=== PATIENT | male | born 1970 | race Caucasian/White ===

== ENCOUNTER 2017-02-26 21:18 | Emergency (ER) | payer MEDICAID | END 2017-02-26 22:37 | disposition home or self-care (01) | LOC: D.ER 21:18 | DX: R51 Headache (principal); Y04.2XXA Assault by strike against or bumped into by another person, initial encounter; Y93.89 Activity, other specified; Y92.89 Other specified places as the place of occurrence of the external cause; F17.200 Nicotine dependence, unspecified, uncomplicated; S09.90XA Unspecified injury of head, initial encounter ==

== ENCOUNTER 2018-05-22 14:22 | Inpatient (IN) | payer MEDICAID ==
[~2018-05-22] VITALS: Ht 177.8 cm; Wt 104.8 kg
--- NOTE | ~2018-05-22 | MORECARE ---
CASE MANAGEMENT DISCHARGE SUMMARY PATIENT: BALDEMAR LOPEZ UNIT: [id number] ADM DATE: 05/22/18 AGE: 47 : 70 SEX: M ROOM/BED: D.2237 AUTHOR: BACILIO MARCELO PHYSICIAN: REFERRING PHYSICIAN: DIAN BAUTISTA MD DATE OF SERVICE: 05/23/18 Discharge Plan Patient Name: BALDEMAR LOPEZ Facility: [facility]:[place] : 1970 Planned Disposition: Home Anticipated Discharge Date: Discharge Date: Expected LOS: Initial Reviewer: [email or web address] Initial Review Date: 05/23/2018 Generated: 05/23/18 2:59 pm Patient Name: BALDEMAR LOPEZ Page 41515 at 1359 All edits/amendments must be made on the electronic document DICTATION DATE: 05/23/18 1358 CLAIM PROCESSING SPECIALIST: HUSAM 05/23/18 1358 RPT#: [id number] DC DATE: STATUS: ADM IN [facility] [address] [place] [address] END OF REPORT
--- NOTE | ~2018-05-22 | MORECARE ---
CASE MANAGEMENT DISCHARGE SUMMARY PATIENT: BALDEMAR LOPEZ UNIT: [id number] ADM DATE: 05/22/18 AGE: 47 : 70 SEX: M ROOM/BED: D.2237 AUTHOR: DAVIAN,DOC PHYSICIAN: REFERRING PHYSICIAN: DIAN BAUTISTA MD DATE OF SERVICE: 05/23/18 Discharge Plan Patient Name: BALDEMAR LOPEZ Facility: [facility]:[place] : 1970 Planned Disposition: Home Anticipated Discharge Date: Discharge Date: Expected LOS: Initial Reviewer: [email or web address] Initial Review Date: 05/23/2018 Generated: 05/23/18 3:34 pm Comments DCP- Discharge Planning Updated by [email or web address]: Ara Kennedy on 05/23/18 1:[address] Patient Name: BALDEMAR LOPEZ Admission Status: ER Accout number: [id number] Admission Date: 05-22-2018 : 1970 Admission Diagnosis: Attending: LILY, Current LOS: 1 Anticipated DC Date: Planned Disposition: Home Primary Insurance: MEDICAID [place] Discharge Planning Comments: Spoke with patient to discuss discharge planning. States he lives in a camper [address]. States he also has an apartment on [address]. States he would like information on HUD housing because he does not feel his home environment is safe. States he will need transportation for home. He refuses to answer some questions, will not give address to [facility] site. States "I always have someone break in when I'm in the hospital and don't want you to know the address." I informed him that I will need his address on discharge if he needs SCAT transportation. SCAT number provided to him. I called Hanh Ron with [employer] to see if she can assist with housing. She states she will call him. I informed him to answer his phone when Hanh calls so that they can assist with housing. CM will continue to follow and assist with discharge planning/needs. Loom Overhauler: Ara Kennedy DCPIA - Discharge Planning Initial Assessment Updated by [email or web address]: Ara Kennedy on 05/23/18 2:23 pm * Is the patient Alert and Oriented? Yes * How many steps to enter\\exit or inside your home? 0/0 * PCP No PCP * Pharmacy [facility] on [address] * Preadmission Environment Home Alone * ADLs Independent * Equipment None * List name and contact numbers for known caregivers / representatives who currently or will assist patient after discharge: Refuses quiestion * Verbal permission to speak to the caregivers and representatives has been obtained from the patient. N/A * Community resources currently utilized None * Additional services required to return to the preadmission environment? No * Can the patient safely return to the preadmission environment? Yes * Has this patient been hospitalized within the prior 30 days at any hospital? No Last DP export: 05/23/18 1:28 Patient Name: BALDEMAR LOPEZ Page 09360 at 1434 All edits/amendments must be made on the electronic document DICTATION DATE: 05/23/181433 CLINICAL NURSING MANAGER: HUSAM 05/23/181433 RPT#: [id number] DC DATE: STATUS: ADM IN [facility] [address] [place] [address] END OF REPORT
--- NOTE | ~2018-05-22 | MORECARE ---
CASE MANAGEMENT DISCHARGE SUMMARY PATIENT: BALDEMAR LOPEZ UNIT: [id number] ADM DATE: 05/22/18 AGE: 47 : 70 SEX: M ROOM/BED: D.2237 AUTHOR: DAVIAN,DOC PHYSICIAN: REFERRING PHYSICIAN: DIAN BAUTISTA MD DATE OF SERVICE: 05/30/18 Discharge Plan Patient Name: BALDEMAR LOPEZ Facility: [facility]:[place] : 1970 Planned Disposition: Home Anticipated Discharge Date: 05/28/18 Discharge Date: 05/28/2018 Expected LOS: 6 Initial Reviewer: [email or web address] Initial Review Date: 05/23/2018 Generated: 05/30/18 5:32 pm Comments DCP- Discharge Planning Updated by [email or web address]: Pebbles Ozuna on 05/28/18 11:[address] Patient Name: BALDEMAR LOPEZ Encounter No: [id number] : 1970 Primary Insurance: MEDICAID [place] Anticipated DC Date: Planned Disposition: Home External Planned Provider: : DCP follow-up note: Patient in agreement with discharge plan. BUS TICKET AND TRANSIT MAP PUT WITH PATIENTS DC INSTRUCTIONS. CM MET WITH PATIENT AND TOLD HIM I WE WERE GIVING HIM A BUS TICKET AT DISCHARGE. No changes to plan. Case management will follow and assist as needed. Pebbles Ozuna DCP- Discharge Planning Updated by [email or web address]: Ara Kennedy on 05/27/18 1:[address] I spoke with patient today concerning discharge plan. I informed him I could call the [facility] bus for transportation home if he will tell me an address of where he is going. He states he does not know the address on [address] where his camper is. He states he would like to go to the apartments on [address] under HUD housing. I informed him he would need to go to [facility] and apply for HUD housing. He asks if I can do that for him. I explained I was not able to do that, he would need to apply. [facility] [facility] personal care has left their packet and card with him and I told him to follow up with Jm sa[employer] for assistance. CM will continue to follow and assist with discharge planning/needs. DCP- Discharge Planning Updated by [email or web address]: Ara Kennedy on 05/24/18 11:[address] Informed patient that Trina Bobby will be here around 2:15 to help him fill out an application for personal care. Patient is thankful and agrees with plan. CM will continue to follow and assist with discharge planning/needs. DCP- Discharge Planning Updated by [email or web address]: Ara Kennedy on 05/23/18 1:[address] Patient Name: BALDEMAR LOPEZ Admission Status: ER Accout number: [id number] Admission Date: 05-22-2018 : 1970 Admission Diagnosis: Attending: LILY, Current LOS: 1 Anticipated DC Date: Planned Disposition: Home Primary Insurance: MEDICAID [place] Discharge Planning Comments: Spoke with patient to discuss discharge planning. States he lives in a camper on [address]. States he also has an apartment on [address]. States he would like information on HUD housing because he does not feel his home environment is safe. States he will need transportation for home. He refuses to answer some questions, will not give address to [facility] site. States "I always have someone break in when I'm in the hospital and don't want you to know the address." I informed him that I will need his address on discharge if he needs SCAT transportation. SCAT number provided to him. I called Hanh Ron with [employer] to see if she can assist with housing. She states she will call him. I informed him to answer his phone when Hanh calls so that they can assist with housing. CM will continue to follow and assist with discharge planning/needs. Assembler Production Line: Ara Kennedy DCPIA - Discharge Planning Initial Assessment Updated by [email or web address]: Ara Kennedy on 05/23/18 2:23 pm * Is the patient Alert and Oriented? Yes * How many steps to enter\\exit or inside your home? 0/0 * PCP No PCP * Pharmacy [facility] on [address] * Preadmission Environment Home Alone * ADLs Independent * Equipment None * List name and contact numbers for known caregivers / representatives who currently or will assist patient after discharge: Refuses quiestion * Verbal permission to speak to the caregivers and representatives has been obtained from the patient. N/A * Community resources currently utilized None * Additional services required to return to the preadmission environment? No * Can the patient safely return to the preadmission environment? Yes * Has this patient been hospitalized within the prior 30 days at any hospital? No Last DP export: 05/28/18 11:55 Patient Name: BALDEMAR LOPEZ Page 44139 at 1632 All edits/amendments must be made on the electronic document DICTATION DATE: 05/30/181631 LANGUAGE INSTRUCTOR: HUSAM 05/30/18 1632 RPT#: [id number] DC DATE:05/28/18 STATUS: DIS IN [facility] [address] [place] [address] END OF REPORT
--- NOTE | ~2018-05-22 | MORECARE ---
CASE MANAGEMENT DISCHARGE SUMMARY PATIENT: BALDEMAR LOPEZ UNIT: [id number] ADM DATE: 05/22/18 AGE: 47 : 70 SEX: M ROOM/BED: D.2237 AUTHOR: BACILIO MARCELO PHYSICIAN: REFERRING PHYSICIAN: DIAN BAUTISTA MD DATE OF SERVICE: 05/23/18 Discharge Plan Patient Name: BALDEMAR LOPEZ [facility] : 1970 Planned Disposition: Home Anticipated Discharge Date: Discharge Date: Expected LOS: Initial Reviewer: [email or web address] Initial Review Date: 05/23/2018 Generated: 05/23/18 3:28 pm DCPIA - Discharge Planning Initial Assessment Updated by [email or web address]: Ara Kennedy on 05/23/18 2:23 pm * Is the patient Alert and Oriented? Yes * How many steps to enter\exit or inside your home? 0/0 * PCP No PCP * Pharmacy [facility] * Preadmission Environment Home Alone * ADLs Independent * Equipment None * List name and contact numbers for known caregivers / representatives who currently or will assist patient after discharge: Refuses quiestion * Verbal permission to speak to the caregivers and representatives has been obtained from the patient. N/A * Community resources currently utilized None * Additional services required to return to the preadmission environment? No * Can the patient safely return to the preadmission environment? Yes * Has this patient been hospitalized within the prior 30 days at any hospital? No Last DP export: 05/23/18 12:59 Patient Name: BALDEMAR LOPEZ Page 49832 at 1428 All edits/amendments must be made on the electronic document DICTATION DATE: 05/23/181426 HEEL PAINTER: HUSAM 05/23/181426 RPT#: [id number] MT DATE: STATUS: ADM IN [facility] [address] [place] [address] END OF REPORT
--- NOTE | ~2018-05-22 | MORECARE ---
CASE MANAGEMENT DISCHARGE SUMMARY PATIENT: BALDEMAR LOPEZ UNIT: [id number] ADM DATE: 05/22/18 AGE: 47 : 70 SEX: M ROOM/BED: D.2237 AUTHOR: DAVIAN,DOC PHYSICIAN: REFERRING PHYSICIAN: DIAN BAUTISTA MD DATE OF SERVICE: 05/27/18 Discharge Plan Patient Name: BALDEMAR LOPEZ Facility: [facility]:[place] : 1970 Planned Disposition: Home Anticipated Discharge Date: Discharge Date: Expected LOS: Initial Reviewer: [email or web address] Initial Review Date: 05/23/2018 Generated: 05/27/18 3:40 pm Comments DCP- Discharge Planning Updated by [email or web address]: Ara Kennedy on 05/27/18 1:[address] I spoke with patient today concerning discharge plan. I informed him I could call the [email or web address] bus for transportation home if he will tell me an address of where he is going. He states he does not know the address on [address] where his camper is. He states he would like to go to the apartments on [address] under HUD housing. I informed him he would need to go to [facility] and apply for HUD housing. He asks if I can do that for him. I explained I was not able to do that, he would need to apply. [employer] personal care has left their packet and card with him and I told him to follow up with Jm saeed for assistance. CM will continue to follow and assist with discharge planning/needs. DCP- Discharge Planning Updated by [email or web address]: Ara Kennedy on 05/24/18 11:[address] Informed patient that Trina Bobby will be here around 2:15 to help him fill out an application for personal care. Patient is thankful and agrees with plan. CM will continue to follow and assist with discharge planning/needs. DCP- Discharge Planning Updated by [email or web address]: Ara Kennedy on 05/23/18 1:[address] Patient Name: BALDEMAR LOPEZ Admission Status: ER Accout number: [id number] Admission Date: 05-22-2018 : 1970 Admission Diagnosis: Attending: LILY, Current LOS: 1 Anticipated DC Date: Planned Disposition: Home Primary Insurance: MEDICAID [place] Discharge Planning Comments: Spoke with patient to discuss discharge planning. States he lives in a camper on [address]. States he also has an apartment on [address]. States he would like information on HUD housing because he does not feel his home environment is safe. States he will need transportation for home. He refuses to answer some questions, will not give address to [facility]. States "I always have someone break in when I'm in the hospital and don't want you to know the address." I informed him that I will need his address on discharge if he needs [employer]AT transportation. SCAT number provided to him. I called Hanh Ron with [employer] to see if she can assist with housing. She states she will call him. I informed him to answer his phone when Hanh calls so that they can assist with housing. CM will continue to follow and assist with discharge planning/needs. Plisse Machine Operator Helper: Ara Kennedy DCPIA - Discharge Planning Initial Assessment Updated by [email or web address]: Ara Kennedy on 05/23/18 2:23 pm * Is the patient Alert and Oriented? Yes * How many steps to enter\\exit or inside your home? 0/0 * PCP No PCP * Pharmacy [facility] on [address] * Preadmission Environment Home Alone * ADLs Independent * Equipment None * List name and contact numbers for known caregivers / representatives who currently or will assist patient after discharge: Refuses quiestion * Verbal permission to speak to the caregivers and representatives has been obtained from the patient. N/A * Community resources currently utilized None * Additional services required to return to the preadmission environment? No * Can the patient safely return to the preadmission environment? Yes * Has this patient been hospitalized within the prior 30 days at any hospital? No Last DP export: 05/24/18 11:23 Patient Name: BALDEMAR LOPEZ Page 32439 at 1440 All edits/amendments must be made on the electronic document DICTATION DATE: 05/27/181439 CORK SLABS SAWYER: HUSAM 05/27/181439 RPT#: [id number] SD DATE: STATUS: ADM IN [facility] [address] [place] [address] END OF REPORT
--- NOTE | ~2018-05-22 | MORECARE ---
CASE MANAGEMENT DISCHARGE SUMMARY PATIENT: BALDEMAR LOPEZ UNIT: [id number] ADM DATE: 05/22/18 AGE: 47 : 70 SEX: M ROOM/BED: D.2237 AUTHOR: DAVIAN,DOC PHYSICIAN: REFERRING PHYSICIAN: DIAN BAUTISTA MD DATE OF SERVICE: 05/28/18 Discharge Plan Patient Name: BALDEMAR LOPEZ Facility: [facility]:[place] : 1970 Planned Disposition: Home Anticipated Discharge Date: 05/28/18 Discharge Date: Expected LOS: 6 Initial Reviewer: [email or web address] Initial Review Date: 05/23/2018 Generated: 05/28/18 1:55 pm Comments DCP- Discharge Planning Updated by [email or web address]: Pebbles Ozuna on 05/28/18 11:[address] Patient Name: BALDEMAR LOPEZ Encounter No: [id number] : 1970 Primary Insurance: MEDICAID [place] Anticipated DC Date: Planned Disposition: Home External Planned Provider: : DCP follow-up note: Patient in agreement with discharge plan. BUS TICKET AND TRANSIT MAP PUT WITH PATIENTS DC INSTRUCTIONS. CM MET WITH PATIENT AND TOLD HIM I WE WERE GIVING HIM A BUS TICKET AT DISCHARGE. No changes to plan. Case management will follow and assist as needed. Pebbles Ozuna DCP- Discharge Planning Updated by [email or web address]: Ara Kennedy on 05/27/18 1:[address] I spoke with patient today concerning discharge plan. I informed him I could call the [email or web address] bus for transportation home if he will tell me an address of where he is going. He states he does not know the address on [address] where his camper is. He states he would like to go to the apartments on [address] under HUD housing. I informed him he would need to go to [facility] and apply for HUD housing. He asks if I can do that for him. I explained I was not able to do that, he would need to apply. [employer] [facility] personal care has left their packet and card with him and I told him to follow up with Jm saeed for assistance. CM will continue to follow and assist with discharge planning/needs. DCP- Discharge Planning Updated by [email or web address]: Ara Kennedy on 05/24/18 11:[address] Informed patient that Trina Bobby will be here around 2:15 to help him fill out an application for personal care. Patient is thankful and agrees with plan. CM will continue to follow and assist with discharge planning/needs. DCP- Discharge Planning Updated by [id number]: Ara Kennedy on 05/23/18 1:[address] Patient Name: BALDEMAR LOPEZ Admission Status: ER Accout number: [id number] Admission Date: 05-22-2018 : 1970 Admission Diagnosis: Attending: LILY, Current LOS: 1 Anticipated DC Date: Planned Disposition: Home Primary Insurance: MEDICAID [place] Discharge Planning Comments: Spoke with patient to discuss discharge planning. States he lives in a camper on [address]. States he also has an apartment on [address]. States he would like information on HUD housing because he does not feel his home environment is safe. States he will need transportation for home. He refuses to answer some questions, will not give address to [facility] site. States "I always have someone break in when I'm in the hospital and don't want you to know the address." I informed him that I will need his address on discharge if he needs [employer] transportation. SCAT number provided to him. I called Hanh Ron with [employer] to see if she can assist with housing. She states she will call him. I informed him to answer his phone when Hanh calls so that they can assist with housing. CM will continue to follow and assist with discharge planning/needs. Fire Alarm Inspector: Ara Marcia DCPIA - Discharge Planning Initial Assessment Updated by [email or web address]: Ara Kennedy on 05/23/18 2:23 pm * Is the patient Alert and Oriented? Yes * How many steps to enter\\exit or inside your home? 0/0 * PCP No PCP * Pharmacy [facility] on [address] * Preadmission Environment Home Alone * ADLs Independent * Equipment None * List name and contact numbers for known caregivers / representatives who currently or will assist patient after discharge: Refuses quiestion * Verbal permission to speak to the caregivers and representatives has been obtained from the patient. N/A * Community resources currently utilized None * Additional services required to return to the preadmission environment? No * Can the patient safely return to the preadmission environment? Yes * Has this patient been hospitalized within the prior 30 days at any hospital? No Last DP export: 05/27/18 1:40 Patient Name: BALDEMAR LOPEZ Page 64791 at 1255 All edits/amendments must be made on the electronic document DICTATION DATE: 05/28/181254 LOGISTICS ENGINEERING MANAGER: HUSAM 05/28/181254 RPT#: [id number] DC DATE: STATUS: ADM IN [facility] [address] [place] [address] END OF REPORT
--- NOTE | ~2018-05-22 | EC ---
PATIENT:BALDEMAR LOPEZ DATE OF SERVICE: 05/22/18 SEX: M MEDICAL RECORD: [id number] DATE OF : [birth year] LOCATION:[facility] AGE OF PATIENT: 47 ADMISSION DATE: 05/22/18 REFERRING PHYSICIAN: INTERPRETING PHYSICIAN: HENRIETTA JAUREGUI MD ECHOCARDIOGRAM REPORT ECHO CHARGES 4 ECHO COMPLETE Date: 05/23/18 CLINICAL DIAGNOSIS: CHF ECHOCARDIOGRAPHIC MEASUREMENTS (adult normal given) AC root (d.<3.7cm) 3.8 cm LV Septum d (<1.2 cm> 1.1 cm Valve Excursion 1.7 cm LV Septum (systole) 1.5 cm Left Atria (s.<4.0cm> 4.8 cm LVPW d(<1.2cm) 1.3 cm RV (d.<2.3cm) 3.5 cm LVPW (sytole) 1.4 cm LV diastole(<5.6CM) 6.8 cm MV E-F(>70mm/sec) cm LV systole 5.8 cm LVOT Diameter 2.2 cm MV exc.(>10mm) cm Est.ejection fraction (50-75%) % DOPPLER: LVIT cm/sec A cm/sec E 109 cm/sec LA cm/sec RVSP 47.1 mmHg LVOT 42.0 cm/sec AOP1/2T m/s Asc. Ao 71.0 cm/sec RVOT 47.0 cm/sec RA cm/sec PA 59.0 cm/sec AV Gradient Peak 2.0 mmHg AV Mean 1.0 mmHg AV Area 2.3 cm MV Gradient Peak 4.5 mmHg MV Mean 1.6 mmHg MV Area cm COMMENTS: Credit Office Manager: Jamey RAMOSOE Manager Of Radiology: 1 Dr. Jauregui TAPE# PACS Pericardial Effusion N DATE OF SERVICE: 05/23/2018 PROCEDURE: Echocardiogram. FINDINGS: 1. Left ventricular chamber size is moderately dilated. Left ventricular systolic function is markedly reduced, overall ejection fraction 10% to 15%. 2. Left atrium is enlarged at 4.8 cm. Right atrium and right ventricle chamber sizes are as well severely dilated. 3. Valvular structures have normal structure and motion. ECHOCARDIOGRAM REPORT [id number] BALDEMAR LOPEZ 4. Doppler interrogation reveals moderate to severe mitral regurgitation, moderate to severe tricuspid regurgitation, no other valvular insufficiency or stenosis. Pulmonary systolic pressure is estimated 47 mmHg. 5. No evidence of pericardial effusion or left ventricular thrombus. TRANSINT:[id number] Voice Confirmation ID: [id number] DOCUMENT ID: [id number] HENRIETTA JAUREGUI MD at 1914 CC: [id number] DICTATION DATE: 05/23/18 1220 WATERWORKS EMPLOYEE: 05/23/18 1303 ADM IN [facility] [address] [place] [id number]
--- NOTE | ~2018-05-22 | MORECARE ---
CASE MANAGEMENT DISCHARGE SUMMARY PATIENT: BALDEMAR LOPEZ UNIT: [id number] ADM DATE: 05/22/18 AGE: 47 : 70 SEX: M ROOM/BED: D.2237 AUTHOR: DAVIAN,DOC PHYSICIAN: REFERRING PHYSICIAN: DIAN BAUTISTA MD DATE OF SERVICE: 05/24/18 Discharge Plan Patient Name: BALDEMAR LOPEZ Facility: [facility] : 1970 Planned Disposition: Home Anticipated Discharge Date: Discharge Date: Expected LOS: Initial Reviewer: [email or web address] Initial Review Date: 05/23/2018 Generated: 05/24/18 1:23 pm Comments DCP- Discharge Planning Updated by [email or web address]: Ara Marcia on 05/24/18 11:[address] Informed patient that Trina Cardosoar will be here around 2:15 to help him fill out an application for personal care. Patient is thankful and agrees with plan. CM will continue to follow and assist with discharge planning/needs. DCP- Discharge Planning Updated by [email or web address]: Ara Kennedy on 05/23/18 1:[address] Patient Name: BALDEMAR LOPEZ Admission Status: ER Accout number: [id number] Admission Date: 05-22-2018 : 1970 Admission Diagnosis: Attending: LILY, Current LOS: 1 Anticipated DC Date: Planned Disposition: Home Primary Insurance: [place]ID [place] Discharge Planning Comments: Spoke with patient to discuss discharge planning. States he lives in a [facility] on [address]. States he also has an apartment on [address]. States he would like information on [employer] housing because he does not feel his home environment is safe. States he will need transportation for home. He refuses to answer some questions, will not give address to [facility]. States "I always have someone break in when I'm in the hospital and don't want you to know the address." I informed him that I will need his address on discharge if he needs [employer] transportation. SCAT number provided to him. I called Hanh oRn with [employer] to see if she can assist with housing. She states she will call him. I informed him to answer his phone when Hanh calls so that they can assist with housing. CM will continue to follow and assist with discharge planning/needs. [employer] Teacher: Ara Kennedy DCPIA - Discharge Planning Initial Assessment Updated by [email or web address]: Ara Kennedy on 05/23/18 2:23 pm * Is the patient Alert and Oriented? Yes * How many steps to enter\\exit or inside your home? 0/0 * PCP No PCP * Pharmacy [facility] on [address] * Preadmission Environment Home Alone * ADLs Independent * Equipment None * List name and contact numbers for known caregivers / representatives who currently or will assist patient after discharge: Refuses quiestion * Verbal permission to speak to the caregivers and representatives has been obtained from the patient. N/A * Community resources currently utilized None * Additional services required to return to the preadmission environment? No * Can the patient safely return to the preadmission environment? Yes * Has this patient been hospitalized within the prior 30 days at any hospital? No Last DP export: 05/23/18 1:34 Patient Name: BALDEMAR LOPEZ Page [id number] at 1223 All edits/amendments must be made on the electronic document DICTATION DATE: 05/24/18 122 PRODUCT MARKETING MANAGER: HUSAM 05/24/18 1223 RPT#: [id number] GA DATE: STATUS: ADM IN [facility] [address] [place] [address] END OF REPORT
[2018-05-22] MEDS ORDERED: BUMETANIDE0.5 MG PO (14:36)
[2018-05-22] MEDS ORDERED: COREG 3.1253.125 MG PO (14:37)
[2018-05-22 15:37] LABS: BASOPHILS 0.3 % (0-2); EOSINOPHILS 2.6 % (0-7); HEMATOCRIT 39.7 % (42.0-54.0); HEMOGLOBIN 13.1 g/dL (13.5-17.5); IMMATURE GRANULOCYTES 0.3 % (0-5); LYMPHOCYTES 22.4 % (15-50); MCH 30.5 pg (26.0-34.0); MCV 92.3 fL (80.0-100.0); MEAN PLATELET VOLUME 11.9 fL (7.4-10.4); MONOCYTES 8.9 % (2-11); NEUTROPHILS 65.5 % (40-80); PLATELET COUNT 187 10x3/uL (130-400); RDW 15.6 % (11.5-14.5); WBC 7.8 10x3/uL (4.8-10.8)
[2018-05-22 16:10] LABS: ALBUMIN 3.1 g/dL (3.4-5.0); ALKALINE PHOSPHATASE 521 U/L (46-116); ALT (SGPT) 61 U/L (10-68); BILIRUBIN - TOTAL 1.45 mg/dL (0.2-1.3); CALC OSMOLALITY 287 mosm/kg (275-300); CALCIUM 8.7 mg/dL (8.5-10.1); CARBON DIOXIDE 26.2 mmol/L (21.0-32.0); CHLORIDE - SERUM 104 mmol/L (98-107); CREATININE - SERUM 1.5 mg/dL (0.6-1.3); POTASSIUM - SERUM 4.1 mmol/L (3.5-5.1); PROTEIN - SERUM 6.7 g/dL (6.4-8.2); SODIUM 142 mmol/L (136-145); UREA NITROGEN 21 mg/dL (7-18); eGFR NON AFRICAN AMERICAN 53 mL/min (90-120)
[2018-05-22 16:18] LABS: GLUCOSE 140 mg/dL (74-106)
[2018-05-22 16:28] LABS: CKMB 0.8 U/L (0.0-3.6); CREATINE KINASE 86 UL (21-232); PRO BNP 14642 pg/mL (0-125); TROPONIN-I 0.029 ng/mL (0.000-0.060)
[2018-05-22 16:40] LABS: MAGNESIUM - SERUM 1.6 mg/dL (1.8-2.4); THYROID STIMULATING HORMONE 5.55 uIU/mL (0.36-3.74)
[2018-05-22 16:56] LABS: APPEARANCE CLEAR (CLEAR); BILIRUBIN NEGATIVE (NEGATIVE); COLOR YELLOW (YELLOW); GLUCOSE NEGATIVE (NEGATIVE); KETONE NEGATIVE (NEGATIVE); NITRITE NEGATIVE (NEGATIVE); PROTEIN 1+ mg/dL (NEGATIVE); UROBILINOGEN NORMAL (NORMAL)
[2018-05-22 17:05] LABS: UDS - AMPHET NEGATIVE QUAL (NEGATIVE); UDS - BARB NEGATIVE QUAL (NEGATIVE); UDS - BENZO NEGATIVE QUAL (NEGATIVE); UDS - COCAINE NEGATIVE QUAL (NEGATIVE); UDS - OPIATE NEGATIVE QUAL (NEGATIVE); UDS - PCP NEGATIVE QUAL (NEGATIVE); UDS - THC NEGATIVE QUAL (NEGATIVE)
[2018-05-22 17:36] VITALS: BP 114/86
[2018-05-22] MEDS ORDERED: VENTOLIN HFA18 GM INH (23:00)
[2018-05-23] VITALS (7 sets, daily range): BP systolic 104–121; BP diastolic 64–89; BMI 25.7
[2018-05-23 07:48] LABS: BASOPHILS 0.1 % (0-2); EOSINOPHILS 1.5 % (0-7); HEMATOCRIT 41.1 % (42.0-54.0); HEMOGLOBIN 13.8 g/dL (13.5-17.5); IMMATURE GRANULOCYTES 0.1 % (0-5); LYMPHOCYTES 17.9 % (15-50); MCH 30.9 pg (26.0-34.0); MCHC 33.6 g/dL (31.0-37.0); MCV 91.9 fL (80.0-100.0); MEAN PLATELET VOLUME 12.2 fL (7.4-10.4); MONOCYTES 8.6 % (2-11); NEUTROPHILS 71.8 % (40-80); PLATELET COUNT 195 10x3/uL (130-400); RBC 4.47 10x6/uL (4.20-6.10); RDW 15.8 % (11.5-14.5); WBC 7.5 10x3/uL (4.8-10.8)
[2018-05-23 08:04] LABS: ALBUMIN 3.3 g/dL (3.4-5.0); ANION GAP 15.1 mmol/L (8-16); BILIRUBIN - TOTAL 1.52 mg/dL (0.2-1.3); C-REACTIVE PROTEIN 2.2 mg/dL (0.0-0.9); CALCIUM 8.7 mg/dL (8.5-10.1); CARBON DIOXIDE 25.2 mmol/L (21.0-32.0); CREATININE - SERUM 1.8 mg/dL (0.6-1.3); POTASSIUM - SERUM 4.3 mmol/L (3.5-5.1); PROTEIN - SERUM 7.1 g/dL (6.4-8.2)
[2018-05-24 03:52] VITALS: BP 104/75
[2018-05-24 05:19] LABS: BASOPHILS 0.3 % (0-2); EOSINOPHILS 3.9 % (0-7); HEMATOCRIT 35.2 % (42.0-54.0); HEMOGLOBIN 11.9 g/dL (13.5-17.5); IMMATURE GRANULOCYTES 0.3 % (0-5); LYMPHOCYTES 21.1 % (15-50); MCH 30.8 pg (26.0-34.0); MCHC 33.8 g/dL (31.0-37.0); MCV 91.2 fL (80.0-100.0); MEAN PLATELET VOLUME 12.5 fL (7.4-10.4); MONOCYTES 8.3 % (2-11); NEUTROPHILS 66.1 % (40-80); PLATELET COUNT 171 10x3/uL (130-400); RBC 3.86 10x6/uL (4.20-6.10); RDW 15.8 % (11.5-14.5); WBC 6.6 10x3/uL (4.8-10.8)
[2018-05-24 05:37] LABS: ANION GAP 14.6 mmol/L (8-16); CALCIUM 8.3 mg/dL (8.5-10.1); CARBON DIOXIDE 25.2 mmol/L (21.0-32.0); CREATININE - SERUM 1.9 mg/dL (0.6-1.3); POTASSIUM - SERUM 3.8 mmol/L (3.5-5.1)
[2018-05-24 08:18] VITALS: BP 126/87
[2018-05-24 12:16] VITALS: BP 119/81
[2018-05-24 15:21] VITALS: Ht 177.8 cm; Wt 104.8 kg
[2018-05-24 15:58] VITALS: BP 117/78
[2018-05-24 20:00] VITALS: BP 106/64
[2018-05-25 03:56] VITALS: BP 105/73
[2018-05-25 05:49] LABS: BASOPHILS 0.1 % (0-2); EOSINOPHILS 2.2 % (0-7); HEMATOCRIT 34.9 % (42.0-54.0); HEMOGLOBIN 11.7 g/dL (13.5-17.5); IMMATURE GRANULOCYTES 0.1 % (0-5); LYMPHOCYTES 18.4 % (15-50); MCH 30.6 pg (26.0-34.0); MCHC 33.5 g/dL (31.0-37.0); MCV 91.4 fL (80.0-100.0); MEAN PLATELET VOLUME 12.4 fL (7.4-10.4); MONOCYTES 6.2 % (2-11); PLATELET COUNT 176 10x3/uL (130-400); RBC 3.82 10x6/uL (4.20-6.10); RDW 15.9 % (11.5-14.5); WBC 6.8 10x3/uL (4.8-10.8)
[2018-05-25 06:04] LABS: ANION GAP 15.9 mmol/L (8-16); CALCIUM 8.2 mg/dL (8.5-10.1); CARBON DIOXIDE 24.6 mmol/L (21.0-32.0); CREATININE - SERUM 1.5 mg/dL (0.6-1.3); POTASSIUM - SERUM 3.5 mmol/L (3.5-5.1)
[2018-05-25 09:07] VITALS: BP 100/67
[2018-05-25 12:29] VITALS: BP 106/72
[2018-05-25 17:14] VITALS: BP 104/74
[2018-05-25 20:00] VITALS: BP 113/75
[2018-05-26 04:00] VITALS: BP 120/70
[2018-05-26 05:45] LABS: BASOPHILS 0.3 % (0-2); HEMATOCRIT 35.6 % (42.0-54.0); HEMOGLOBIN 11.6 g/dL (13.5-17.5); IMMATURE GRANULOCYTES 0.2 % (0-5); LYMPHOCYTES 16.5 % (15-50); MCH 30.4 pg (26.0-34.0); MCHC 32.6 g/dL (31.0-37.0); MEAN PLATELET VOLUME 12.4 fL (7.4-10.4); MONOCYTES 5.1 % (2-11); NEUTROPHILS 74.9 % (40-80); PLATELET COUNT 192 10x3/uL (130-400); RBC 3.81 10x6/uL (4.20-6.10); RDW 16.3 % (11.5-14.5); WBC 6.4 10x3/uL (4.8-10.8)
[2018-05-26 05:54] LABS: MCV 93.4 fL (80.0-100.0)
[2018-05-26 06:01] LABS: ANION GAP 13.1 mmol/L (8-16); CALCIUM 8.3 mg/dL (8.5-10.1); CARBON DIOXIDE 28.5 mmol/L (21.0-32.0); CREATININE - SERUM 1.7 mg/dL (0.6-1.3); POTASSIUM - SERUM 3.6 mmol/L (3.5-5.1)
[2018-05-26 08:34] VITALS: BP 118/85
[2018-05-26 15:45] VITALS: BP 126/78
[2018-05-26 20:00] VITALS: BP 86/58
[2018-05-27 04:00] VITALS: BP 99/60
[2018-05-27 04:38] LABS: BASOPHILS 0.3 % (0-2); EOSINOPHILS 3.7 % (0-7); HEMATOCRIT 34.4 % (42.0-54.0); HEMOGLOBIN 11.4 g/dL (13.5-17.5); IMMATURE GRANULOCYTES 0.3 % (0-5); MCH 30.6 pg (26.0-34.0); MCHC 33.1 g/dL (31.0-37.0); MCV 92.2 fL (80.0-100.0); MONOCYTES 9.3 % (2-11); NEUTROPHILS 69.4 % (40-80); PLATELET COUNT 186 10x3/uL (130-400); RBC 3.73 10x6/uL (4.20-6.10); RDW 16.5 % (11.5-14.5); WBC 6.5 10x3/uL (4.8-10.8)
[2018-05-27 04:57] LABS: ANION GAP 13.3 mmol/L (8-16); CALCIUM 8.2 mg/dL (8.5-10.1); CARBON DIOXIDE 27.2 mmol/L (21.0-32.0); CREATININE - SERUM 1.4 mg/dL (0.6-1.3); POTASSIUM - SERUM 3.5 mmol/L (3.5-5.1)
[2018-05-27 07:55] VITALS: BP 110/57
[2018-05-27 11:54] VITALS: BP 112/76
[2018-05-27 17:35] VITALS: BP 110/54
[2018-05-27 20:23] VITALS: BP 104/71
[2018-05-28 04:43] VITALS: BP 112/68
[2018-05-28 05:31] LABS: BASOPHILS 0.6 % (0-2); EOSINOPHILS 4.6 % (0-7); HEMOGLOBIN 10.8 g/dL (13.5-17.5); IMMATURE GRANULOCYTES 0.4 % (0-5); LYMPHOCYTES 25.3 % (15-50); MCH 30.4 pg (26.0-34.0); MCHC 32.7 g/dL (31.0-37.0); MEAN PLATELET VOLUME 12.1 fL (7.4-10.4); MONOCYTES 9.9 % (2-11); NEUTROPHILS 59.2 % (40-80); PLATELET COUNT 181 10x3/uL (130-400); RBC 3.55 10x6/uL (4.20-6.10); RDW 16.3 % (11.5-14.5); WBC 5.5 10x3/uL (4.8-10.8)
[2018-05-28 05:51] LABS: ANION GAP 13.5 mmol/L (8-16); CALCIUM 8.6 mg/dL (8.5-10.1); CARBON DIOXIDE 28.2 mmol/L (21.0-32.0); CREATININE - SERUM 1.5 mg/dL (0.6-1.3); POTASSIUM - SERUM 3.7 mmol/L (3.5-5.1)
[2018-05-28 07:51] VITALS: BP 102/68
[2018-05-28] MEDS ORDERED: LISINOPRIL2.5 MG PO (11:44)
[2018-05-28] MEDS ORDERED: ALDACTONE25 MG PO (11:44)
[2018-05-28] MEDS ORDERED: CHLORTHALIDONE25 MG PO (11:45)
[2018-05-28] MEDS ORDERED: BUMETANIDE0.5 MG PO (11:45)
[2018-05-28] MEDS ORDERED: COLACE100 MG PO (11:46)
[2018-05-28] MEDS ORDERED: PROTONIX20 MG PO (11:47)
[2018-05-28 12:55] VITALS: BP 105/66
== END 2018-05-28 14:10 | disposition home or self-care (01) | DRG 291 ==
LOC: D.ER 14:22 → D.MS 18:02 → D.EDHOLD 18:02 → D.MS 18:50
PROVIDERS: Family Medicine; Internal Medicine Nephrology
DX: I50.23 Acute on chronic systolic (congestive) heart failure (principal); J18.9 Pneumonia, unspecified organism; J44.0 Chronic obstructive pulmonary disease with (acute) lower respiratory infection; J44.1 Chronic obstructive pulmonary disease with (acute) exacerbation; N17.9 Acute kidney failure, unspecified; R18.8 Other ascites; I42.0 Dilated cardiomyopathy; I08.1 Rheumatic disorders of both mitral and tricuspid valves; F17.200 Nicotine dependence, unspecified, uncomplicated; I25.2 Old myocardial infarction